=== PATIENT | male | born 1970 | race Hispanic/Latino ===

== ENCOUNTER 2022-02-23 19:48 | Emergency (ER) | payer BC ==
[~2022-02-23] VITALS: Ht 177.8 cm; Wt 124.7 kg
[2022-02-23 20:16] LABS: BASOPHILS % (AUTO) 0.8 % (0.0-5.0); EOSINOPHILS % (AUTO) 2.2 % (0.0-8.0); HEMATOCRIT 41.4 % (42-54); MEAN CORPUSCULAR HEMOGLOBIN 31.5 pg (27.0-33.0); MEAN CORPUSCULAR HGB CONC 36.5 g/dL (32.0-36.0); MEAN CORPUSCULAR VOLUME 86.4 fL (79-99); NEUTROPHILS % (AUTO) 54.7 % (40.0-77.0); PLATELET COUNT (AUTO) 199 K/uL (130-400); RED BLOOD CELL COUNT(AUTO) 4.79 MIL/uL (4.50-6.20); RED CELL DISTRIBUTION WIDTH 12.4 % (11.0-15.5); WHITE BLOOD COUNT (AUTO) 7.8 K/uL (4.8-10.8)
[2022-02-23 20:17] LABS: APPEARANCE,URINE CLEAR (CLEAR); BILIRUBIN,URINE NEGATIVE (NEGATIVE); COLOR,URINE YELLOW (YELLOW); GLUCOSE, URINE (UA) >=1000 mg/dL (NEGATIVE); KETONES,URINE 15 mg/dL (NEGATIVE); LEUKOCYTE ESTERASE ,URINE NEGATIVE (NEGATIVE); NITRATE,URINE NEGATIVE (NEGATIVE); OCCULT BLOOD,URINE NEGATIVE (NEGATIVE); PROTEIN,URINE NEGATIVE (NEGATIVE); UROBILINOGEN,URINE 0.2 mg/dL (0.2-1.0)
[2022-02-23 20:24] VITALS: BP 179/102
[2022-02-23 20:25] LABS: AMPHET/METH SCREEN,URINE NEGATIVE (NEGATIVE); BARBITURATE SCREEN, URINE NEGATIVE (NEGATIVE); BENZODIAZEPINES SCREEN,URINE NEGATIVE (NEGATIVE); CANNABINOID SCREEN,URINE NEGATIVE (NEGATIVE); COCAINE SCREEN,URINE NEGATIVE (NEGATIVE); PHENCYCLIDINE SCREEN,URINE NEGATIVE (NEGATIVE)
[2022-02-23 20:25] LABS: CREATININE 0.9 mg/dL (0.5-1.5); POTASSIUM 4.1 mmol/L (3.5-5.1)
[2022-02-23 20:28] LABS: BACTERIA,URINE Rare /HPF (None Seen); RBC,URINE 0-1 /HPF (0-1); SQUAMOUS EPITHELIAL CELL,UR Rare /HPF (0-2); WBC,URINE 0-1 /HPF (0-1)
[2022-02-23 20:35] LABS: TOTAL PROTEIN, SERUM 8.1 g/dL (6.0-8.3)
[2022-02-23] MEDS ORDERED: ASPIRIN 325MG TAB PO ONE (21:00)
[2022-02-23] MEDS ORDERED: NIFEDIPINE 10 MG CAP PO ONE (21:00)
[2022-02-23] MEDS ORDERED: NITROGLYCERIN 1GM OINT 1 INCH/1GM TD ONE (21:00)
[2022-02-26 21:08] LABS: OPIATES SCREEN URINE Negative ng/mL (Cutoff=300)
== END 2022-02-23 21:21 | disposition left against medical advice (07) ==
LOC: EDH 19:48
DX: E11.65 Type 2 diabetes mellitus with hyperglycemia (principal); I10 Essential (primary) hypertension; R77.8 Other specified abnormalities of plasma proteins; E66.01 Morbid (severe) obesity due to excess calories; R42 Dizziness and giddiness; Z68.39 Body mass index [BMI] 39.0-39.9, adult
CPT/HCPCS: 36415; 80053; 80305; 81001; 84484; 85025; 93005

== ENCOUNTER 2025-05-31 22:44 | Emergency (ER) | payer BC ==
[~2025-05-31] VITALS: Ht 177.8 cm; Wt 122.5 kg
--- NOTE | 2025-05-31 22:45 | NUR ---
UA CUP PROVIDED
--- NOTE | 2025-05-31 22:59 | NUR ---
UA COLLECTED AND SENT
[2025-05-31 23:10] LABS: ADD UA MICROSCOPIC YES; APPEARANCE,URINE CLEAR (CLEAR); GLUCOSE, URINE (UA) 200 mg/dL (NEGATIVE); LEUKOCYTE ESTERASE ,URINE NEGATIVE Leu/uL (NEGATIVE); NITRATE,URINE NEGATIVE (NEGATIVE); OCCULT BLOOD,URINE NEGATIVE (NEGATIVE)
[2025-05-31 23:11] LABS: SQUAMOUS EPITHELIAL CELL,UR RARE /HPF (0-2)
[2025-05-31 23:41] LABS: IMMATURE GRANULOCYTE ABSOLUTE 0.03 K/uL (0-1); NUCLEATED RED BLOOD CELLS 0.0 % (0.0-0.19); PLATELET COUNT (AUTO) 259 K/uL (130-400); RED BLOOD CELL COUNT(AUTO) 5.13 MIL/uL (4.50-6.20); RED CELL DISTRIBUTION WIDTH 12.4 % (11.0-15.5); WHITE BLOOD COUNT (AUTO) 13.7 K/uL (4.8-10.8)
[2025-05-31 23:48] LABS: CREATININE 0.9 mg/dL (0.5-1.3); GLOMERULAR FILTR. RATE CALC 101.0 mL/min (>90); GLUCOSE,RANDOM 228.0 mg/dL (70-105); SODIUM SERUM 138.0 mmol/L (136-145); UREA NITROGEN, BLOOD 8.0 mg/dL (7-18)
[2025-06-01 00:18] LABS: WBC MORPHOLOGY CONSISTENT W/DIFF
[2025-06-01] MEDS ORDERED: 0.9%NACL 1000ML 1,000 ML IV SCH (00:30)
--- NOTE | 2025-06-01 00:35 | ERN ---
General Chief Complaint: Abdominal Pain Stated Complaint: ABD PAIN Time Seen by MD: 23:00 History of Present Illness Initial Comments 55 yo M h/o HTN, HLD, and DM here for evaluation of abd pain. Pt states that he was seen by his pcp and dx'd w/constipation and given lactulose to help with the constipation. He has been c/o pain w/ defacation including blood tinged feces as well as diarrhea at times. No fever. No cough. No SOB. No N/V. Allergies: Coded Allergies: No Known Allergies (Unverified Allergy, Unknown, 11/28/13) Past Medical History Past Medical History: Diabetes-Type II, High Cholesterol, Hypertension Medical History Other: Morbidly obese Past Surgical History: Other Surgical History Other: HERNIA Family History Family History: Negative Social History Social History: Negative Gastrointestinal/Abdominal: (+) nausea, (+) constipation Physical Exam General Appearance: (+) no apparent distress Orientation: (+) alert, (+) oriented x 3 Eye: bilateral eye normal inspection, bilateral eye PERRL Ear, Nose, Throat: (+) hearing grossly normal, (+) normal ENT inspection, (+) moist mucous membraine Neck: (+) normal inspection, (+) supple Respiratory: (+) chest non-tender, (+) lungs clear, (+) well ventilated Heart: (+) regular; (-) murmur Gastrointestinal: (+) soft, (+) tender (LLQ and RLQ) Extremities: (+) normal range of motion, (+) non-tender, (+) normal inspection Neurologic/Psychiatric: (+) normal speech Results Laboratory and Microbiology Lab and Micro Result Laboratory Tests Test 05/31/25 22:59 05/31/25 23:27 Urine Color YELLOW (YELLOW) Urine Appearance CLEAR (CLEAR) Urine pH 5.5 (5.0-8.0) Urine Specific [place] 1.019 (1.001-1.031) Urine Protein 20 mg/dL (NEGATIVE) H Urine Glucose (UA) 200 mg/dL (NEGATIVE) H Urine Ketones 20 mg/dL (NEGATIVE) H Urine Occult Blood NEGATIVE (NEGATIVE) Urine Nitrate NEGATIVE (NEGATIVE) Urine Bilirubin NEGATIVE mg/dL (NEGATIVE) Urine Urobilinogen 0.2 mg/dL (0.2-1.0) Urine Leukocyte Esterase NEGATIVE Vikas/uL Urine RBC 0-1 /HPF (0-1) Urine WBC 0-1 /HPF (0-1) Urine Squamous Epithelial Cells RARE /HPF (0-2) Urine Bacteria None /HPF (None Seen) White Blood Count 13.7 K/uL (4.8-10.8) H Red Blood Count 5.13 MIL/uL (4.50-6.20) Hemoglobin 15.8 g/dL (14.0-18.0) Hematocrit 44.6 % (42-54) Mean Corpuscular Volume 86.9 fL (79-99) Mean Corpuscular Hemoglobin 30.8 pg (27.0-33.0) Mean Corpuscular Hemoglobin Concent 35.4 g/dL (32.0-36.0) Red Cell Distribution Width 12.4 % (11.0-15.5) Platelet Count 259 K/uL (130-400) Mean Platelet Volume 11.0 fL (7.5-10.5) H Immature Granulocyte % (Auto) 0.2 % (0-1) Neutrophils (%) (Auto) 80.2 % (40.0-77.0) H Lymphocytes (%) (Auto) 10.0 % (21.0-51.0) L Monocytes (%) (Auto) 8.3 % (3.0-13.0) Eosinophils (%) (Auto) 0.9 % (0.0-8.0) Basophils (%) (Auto) 0.4 % (0.0-5.0) Neutrophils # (Auto) 11.0 K/uL (1.8-7.7) H Lymphocytes # (Auto) 1.4 K/uL (1.0-4.8) Monocytes # (Auto) 1.1 K/uL (0.1-1.0) H Eosinophils # (Auto) 0.12 K/uL (0.00-0.70) Basophils # (Auto) 0.06 K/uL (0.00-0.20) Absolute Immature Granulocyte (auto 0.03 K/uL (0-1) Nucleated Red Blood Cells 0.0 % (0.0-0.19) White Cell Morphology Comment CONSISTENT W/DIFF Sodium Level 138 mmol/L (136-145) Potassium Level 3.5 mmol/L (3.5-5.1) Chloride Level 102 mmol/L (101-111) Carbon Dioxide Level 28 mmol/L (21-32) Blood Urea Nitrogen 8 mg/dL (7-18) Creatinine 0.9 mg/dL (0.5-1.3) Glomerular Filtration Rate Calc 101 mL/min (>90) Random Glucose 228 mg/dL (70-105) H Total Calcium 8.8 mg/dL (8.5-10.1) Lipase 33 U/L (16-77) MDM MDM: constipation, abd pain, gastroenteritis DIFFERENTIAL DIAGNOSIS: RATIONALE: TESTS CONSIDERED AND ORDERED SECONDARY TO SHARED DECISION MAKING INCLUDE: PREVIOUS OUTSIDE RECORDS REVIEWED: OLD ER VISITS. RISK OF COMPLICATION AND/OR MORBIDITY OR MORTALITY OF PATIENT MANAGEMENT: NONE MEDICATIONS-PER MEDICATION RECONCILIATION NEED FOR HOSPITALIZATION: PATIENT DOES NOT MEET CRITERIA FOR HOSPITALIZATION. NEED FOR EMERGENCY MAJOR/MINOR SURGERY: NO THERE ARE NO SOCIAL CONCERNS WITH THIS PATIENT. PRESCRIPTION DRUG MANAGEMENT PRESCRIPTIONS WILL INCLUDE SYMPTOMATIC CARE PATIENT'S PRIOR EXTERNAL MEDICAL RECORDS FROM OTHER ER VISITS WERE REVIEWED BY ME INDICATED. PRIOR TESTING AND RESULTS FROM PREVIOUS VISITS WERE REVIEWED. PRIOR TESTS WERE TAKEN INTO ACCOUNT WITH MEDICAL DECISION MAKING AND RESOURCE UTILIZATION, INDEPENDENT HISTORIAN/HISTORIANS WERE USED TO OBTAIN COMPLETE MEDICAL HISTORY. I INDEPENDENTLY INTERPRETED THE TEST THAT WERE PERFORMED, RESULTS WERE REVIEWED BY ME AND CONSIDERED FINDINGS ON RADIOLOGY IF ORDERED. MEDICAL MANAGEMENT AND EXAMINATION INTERPRETATION DISCUSSIONS WERE HAD BY ME WITH OTHER QUALIFIED HEALTHCARE PROFESSIONALS INDICATED FOR THE PATIENT'S CARE. Job of like wanting to with the people and getting them officers ED Course Orders Procedure Category Date Status Time Vital Signs Per CPOE 05/31/25 Transmitted Routine 22:47 Saline Lock Iv CPOE 05/31/25 Transmitted 22:47 Cbc With Differential LAB 05/31/25 Complete 22:47 Lipase LAB 05/31/25 Complete 22:47 Urinalysis Profile LAB 05/31/25 Complete 22:47 Basic Metabolic Panel LAB 05/31/25 Complete 22:47 Abd 1vw RAD 06/01/25 Resulted 00:14 0.9%Nacl 1000ml (Ns PHA 06/01/25 In Process 1000ml) 00:30 Hepatic Function Panel LAB 06/01/25 Logged 01:58 Current Medications Medications (Trade) Dose Ordered Sig/Janes Route PRN Reason Start Time Stop Time Status Last Admin Dose Admin Sodium Chloride 1,000 ml @ 0 mls/hr Q0M IV 06/01/25 00:30 07/01/25 00:29 Vital Signs Date Time Temp Pulse Resp B/P (MAP) Pulse Ox O2 Delivery O2 Flow Rate FiO2 06/01/25 02:07 99.0 71 18 168/99 97 Room Air* 0 21 05/31/25 22:45 97.7 96 20 170/90 97 Room Air DX & DISP Disposition: Discharge Departure Impression: Primary Impression: Constipation Additional Impression: Hyperglycemia due to diabetes mellitus Condition: Stable Scripts Bisacodyl (Dulcolax) 5 Mg Tablet.dr 2 TAB PO AD for constipation for 2 Days, #4 TAB 0 Refills Prov: GRISELDA MARMOLEJO MD 06/01/25 Polyethylene Glycol 3350 (Miralax) 17 Gram Powd.pack 1 PACKET PO DAILY for constipation for 7 Days, #7 PACKET 0 Refills dissolve in water Prov: GRISELDA MARMOLEJO MD 06/01/25 Referrals: DEMI HERNANDEZ MD (PCP) GRISELDA MARMOLEJO MD Jun 01, 2025 00:35
--- NOTE | 2025-06-01 02:56 | HMCIMG ---
EXAM: CR Abdomen, 2 views CLINICAL HISTORY: Constipation. COMPARISON: None provided. FINDINGS: Nonobstructed nonspecific bowel gas pattern. A component of mild constipation is present in the colon. No free air is evident. No abnormal calcification. No aggressive appearing osseous lesion. Degenerative osseous changes. IMPRESSION: No acute process. A component of mild constipation is present in the colon. /[place]
[2025-06-01] MEDS ORDERED: BISA-72 PO (03:10)
[2025-06-01] MEDS ORDERED: POLY17PO4 PO (03:10)
[2025-06-01 03:36] VITALS: BP 156/48; PULSE 68; RESP 18; TEMP 98.9; O2SAT 97
[2025-06-01 03:44] LABS: ASPARTATE AMINOTRANSFERASE 24.0 U/L (10-37); TOTAL PROTEIN, SERUM 8.0 g/dL (6.0-8.3)
== END 2025-06-01 03:40 | disposition home or self-care (01) ==
LOC: EDH 22:44
DX: K59.00 Constipation, unspecified (principal); E11.65 Type 2 diabetes mellitus with hyperglycemia; E78.00 Pure hypercholesterolemia, unspecified; I10 Essential (primary) hypertension; E66.01 Morbid (severe) obesity due to excess calories; R19.7 Diarrhea, unspecified; Z68.38 Body mass index [BMI] 38.0-38.9, adult; Z98.890 Other specified postprocedural states
CPT/HCPCS: 36415; 74018; 80048; 80076; 81001; 83690; 85025; 99283